=== PATIENT | female | born 2005 | race Caucasian/White ===

== ENCOUNTER 2023-05-06 11:40 | Outpatient (REF) | payer MEDICAID, SELFPAY ==
[2023-05-09 00:17] LABS: TS Negative Control Passed; TS Panel A 0; TS Panel B 0; TS Positive Control Passed; TSpotTB Negative (Negative)
== END 2023-05-06 11:41 | disposition home or self-care (01) ==
LOC: HO.HHCL 11:40
PROVIDERS: Visit Provider Family Medicine
DX: Z11.1 Encounter for screening for respiratory tuberculosis (principal)
CPT/HCPCS: 36415; 86481

== ENCOUNTER 2023-05-20 10:57 | Outpatient (REF) | payer MEDICAID, SELFPAY ==
[2023-05-20 13:29] LABS: Hematocrit 37.4 % (37.0-47.0); Hemoglobin 11.8 g/dl (12.0-16.0); Mean Corpuscular HGB Conc 31.6 g/dl (31.0-35.0); Mean Corpuscular Hemoglobin 25.5 pg (27.0-33.0); Mean Platelet Volume 10.8 fL (9.4-12.3); Platelet Count 216 X10*3/uL (160-400); Red Blood Count 4.62 X10*6/uL (4.20-5.50); Red Cell Distribution Width 13.6 % (11.0-16.0); White Blood Count 4.9 X10*3/uL (4.8-10.8)
[2023-05-20 13:58] LABS: Alanine Aminotransferase 16 U/L (0-31); Albumin Level 3.9 g/dL (3.5-5.0); Alkaline Phosphatase 60 U/L (39-117); Anion Gap 7 (12-20); Aspartate Amino Transferase 19 U/L (5-31); Bilirubin Total 0.5 mg/dL (0.0-1.0); Blood Urea Nitrogen 10 mg/dL (9-16); Calcium 9.2 mg/dL (8.4-10.2); Carbon Dioxide 29 mmol/L (22-29); Chloride 109 mmol/L (96-108); Cholesterol 136 mg/dL (<200); Estimated Glomerular Filt Rate > 60; Glucose Random 88 mg/dL (60-115); HDL Cholesterol 53 mg/dL (>40); Iron 53 mcg/dL (30-160); LDL Cholesterol Calculated 76 mg/dL (<100); Percent Iron Saturation 20 % (15-50); Potassium 4.2 mmol/L (3.3-5.1); Sodium 141 mmol/L (135-145); Total Iron Binding Capacity 267 mcg/dL (228-428); Total Protein 7.4 g/dL (6.5-8.0); Triglycerides 37 mg/dL (<150); Unsaturated Iron Binding 214 ug/dL
[2023-05-20 14:24] LABS: Ferritin 48 ng/mL (10-122)
[2023-05-21 08:59] LABS: HBS Num1 1.75 mIU/mL (0-7.99); HBc Num1 0.07 S/CO (0.00-0.79); HBsAGNum1 0.31 S/CO (0.00-0.99); HIV AB/AG Nonreactive (Nonreactive); HIV Num 1 0.07 S/CO (0.00-0.99); Hepatitis B Core Antibody Nonreactive (Nonreactive); Hepatitis B Surface Antigen Negative (Negative); ~HepC Num1 0.11 S/CO (0.00-0.79); ~Hepatitis B Surface Antibody NONREACTIVE (Nonreactive); ~Hepatitis C Antibody Nonreactive (Nonreactive)
== END 2023-05-20 10:58 | disposition home or self-care (01) ==
LOC: HO.HHCL 10:57
PROVIDERS: Visit Provider Family Medicine
DX: Z00.00 Encounter for general adult medical examination without abnormal findings (principal); Z11.4 Encounter for screening for human immunodeficiency virus [HIV]; D50.9 Iron deficiency anemia, unspecified; E66.09 Other obesity due to excess calories; R73.03 Prediabetes
CPT/HCPCS: 36415; 80053; 80061; 82728; 83540; 85027; 86704; 86706; 86803; 87340; 87389

== ENCOUNTER 2023-06-17 16:17 | Outpatient (REF) | payer MEDICAID, SELFPAY ==
--- NOTE | ~2023-06-17 | US_ITS ---
EXAMINATION: US PELVIS COMPLETE CLINICAL INFORMATION: Irregular menstrual bleeding COMPARISON: Pelvic ultrasound I-[id number] TECHNIQUE: Transabdominal imaging was performed. FINDINGS: The uterus is of normal size and echogenicity measuring 5.4 x 2.0 x 2.7 cm. The endometrium is not well-seen limiting evaluation due to transabdominal technique. Both ovaries are of normal size and echogenicity. The right measures 2.7 x 1.7 x 2.5 cm. The left measures 1.7 x 1.7 x 1.8 cm. There is no pelvic free fluid. US/US pelvic complete IMPRESSION: The endometrium is not well-seen limiting evaluation due to transabdominal technique. Otherwise unremarkable pelvic ultrasound.
== END 2023-06-17 16:18 | disposition home or self-care (01) ==
LOC: HO.US 16:17
PROVIDERS: PCP Family Medicine; Visit Provider Family Medicine
DX: N92.6 Irregular menstruation, unspecified (principal)
CPT/HCPCS: 76856

== ENCOUNTER 2023-11-06 12:32 | Outpatient (REF) | payer MEDICAID, SELFPAY ==
[2023-11-06 13:58] LABS: Estimated Average Glucose 100 mg/dL; Hemoglobin A1c % 5.1 % (<6.0)
[2023-11-06 14:38] LABS: Alanine Aminotransferase 15 U/L (0-31); Albumin Level 3.9 g/dL (3.5-5.0); Alkaline Phosphatase 58 U/L (39-117); Anion Gap 12 (12-20); Aspartate Amino Transferase 13 U/L (5-31); Bilirubin Total 0.4 mg/dL (0.0-1.0); Blood Urea Nitrogen 9 mg/dL (9-16); Calcium 9.6 mg/dL (8.4-10.2); Carbon Dioxide 28 mmol/L (22-29); Chloride 104 mmol/L (96-108); Estimated Glomerular Filt Rate > 60; Glucose Random 78 mg/dL (60-115); Potassium 3.7 mmol/L (3.3-5.1); Sodium 140 mmol/L (135-145); Total Protein 7.7 g/dL (6.5-8.0)
[2023-11-06 14:46] LABS: TSH reflex Free T4 1.56 uIU/mL (0.32-4.0)
== END 2023-11-06 12:33 | disposition home or self-care (01) ==
LOC: HO.HHCL 12:32
PROVIDERS: Visit Provider Nurse Practitioner
DX: E66.01 Morbid (severe) obesity due to excess calories (principal); Z68.41 Body mass index [BMI] 40.0-44.9, adult
CPT/HCPCS: 36415; 80053; 83036; 84443

== ENCOUNTER → 2024-08-16 07:54 | Outpatient (REF) | payer OTHER, SELFPAY ==
--- OUTSIDE RECORDS SUMMARY | 2024-08-16 07:57 | XMS_ITS | Encounter Summary ---
Author Organization [employer] Address [address] [place] [address] [address] [place] [address] Care Team Providers Care Radiator Fitter Name Role Phone Debo Charles Primary Care Provider [phone] Judith Calero NP Primary Care Provider [phone] Reason for Visit * Reason Onset Date Comments FYI 11/03/2022 Encounter Details Date Type Department Care Team (Late st Contact Info) Description 11/03/2022 Telephone [facility] [address] [place] [address] Debo Charles FNP [address] [place] [address] Dept [place] [address] I Social History Tobacco Use Types Packs/Day Years Used Date Smoking Tobacco: Never Smokeless Tobacco: Never Alcohol Use Standard Drinks/Week Comments Never 0 (1 standard drink = 0.6 oz pur e alcohol) Comments Unknown Sex and Gender Information Value Date Recorded Sex Assigned at Female 05/05/2022 10:17 AM EDT Legal Sex Female 10:17 AM EDT Gender Identity Female 05/05/2022 10:17 AM EDT Sexual Orientation Straight 05/05/2022 10 :17 AM EDT COVID-19 Exposure Response Date Recorded In the last 10 days, have yo u been in contact with someone who was confirmed or suspected to have Coronavirus/COVID-19? No / Unsure 10/23/2022 8:36 AM EDT documented as of this encounter Miscellaneous Notes * Telephone Encounter - Tanya Hollis - 11/03/2022 12:21 PM EDT Jaylan Garcia at [facility] calling to inform PCP, patient has an US pelvis and transvaginal today but did refuse the transvaginal part of it. Any further questions please call [phone]. documented in this encounter Plan of Treatment Not on file documented as of this encounter Visit Diagnoses Not on filedocumented in this encounter Care Teams Radiator Fitter Relationship Specialty Start Date End Date Debo Charles FNP PCP - General Family Medicine 01/23/22 04/13/23 Judith Calero NP [address] [place] [phone] PCP - General Family Medicine 04/14/23 documented as of this encounter
--- OUTSIDE RECORDS SUMMARY | 2024-08-16 07:57 | XMS_ITS | Clinical Summary ---
Author Organization [employer] Address [address] [place] [address] [address] [place] [address] Care Team Providers Care Theater Manager Name Role Phone Christisarah Judith CHEPE Primary Care Provider [phone] Allergies No known active allergies Medications cholecalciferol (Vitamin D-3) 50 MCG (1999 UT) tablet 1 (one) time each day. 2 Active ibuprofen 600 MG tablet TAKE 1 TABLET BY MOUTH EVERY 6 HOURS NEEDED FOR MODERATE PAIN SCALE 4-6. 2 Active ferrous gluconate (Fergon) 324 (38 Fe) MG tablet TAKE 1 TABLET BY MOUTH EVERY OTHER DAY 45 tablet 3 Active topiramate (Topamax) 25 MG tabletIndication s:Class 3 severe obesity due to excess calories without serious comorbidity with body mass index (BMI) of 40.0 to 44.9 in adult (CMS/FORMERLY [facility]) Take 1 tablet (25 mg) by mouth Once per day for 14 days. 14 tablet 4 Active phentermine 8 MG tablet Take half tablet by by mouth every day for 14 days. Then 1 tablet qd 28 tablet 4 Active Active Problems Problem Noted Date Diagnosed Date Encounter for preventive health examination 05/07 Assessment & Plan (07/08/2024 8:48 PM EST): Discussed with patient re increase fresh fruit and vegetable intake. Counseled re moderate exercise as tolerated, up to 20min/d Patient feels safe at home. PAP smear: Not due yet. BENIGNO huerta PCP in 2027 Eye exam: UTD, next one due on 2024 or earlier prn. Lipids/FBS: UTD, order TB test Vaccinations: Agreed to Influenza IZ and Hep B booster today. Advised to get most updated covid booster at earliest convenience, declined to have it done today. Dental visit: UTD, next one due on 08/2024 Patient is aware of condom samples availability at the health center and how to use it PRN intercourse to prevent both unwanted and STD. She doesn't want to start BC method at this time. Assessment & Plan (06/01/2023 1:24 PM EST): -flu vaccine received today -hepatitis and HIV screening completed -not due for pap/ cervical screening at this time Irregular menstrual bleeding 05/31/2023 Assessment & Plan (06/01/2023 1:23 PM EST): -irregular menses continues -unclear if TVUS was complete unable to see if the system -continue ibuprofen for menstrual cramps Iron deficiency anemia 10/24/2022 Assessment & Plan (05/31/2023 8:11 AM EST): -continue supplementation as ordered -increase consumption of iron rich foods such as kidd, dark green leafy vegetables, fortified breakfast cereals -will evaluate labs Episodic tension-type headache 06/09/2022 Prediabetes 06/09/2022 Overview (05/18/2023): Lab Results Component Value Date HGBA1C 4.9 10/23/2022 HGBA1C 4.9 02/13/2022 HGBA1C 4.8 10/25/2021 HGBA1C 5.1 10/15/2020 Acne vulgaris 03/22/2018 Eczema 08/12/2017 Decreased visual acuity 08/12/2017 Behavior problem in child 08/12/2017 Speech delay 08/12/2017 Obesity 12/17/2011 Assessment & Plan (06/22/2024 4:24 PM EST): -trialed phentermine/topamax with failed attempt as her insurance would not cover phentermine -discussed other pharmacological options for weight loss. Patient would rather undergo bariatric surgery -Discussed calorie deficit, recommended reduction of 20-30% of maintenance calories. Recommended to decrease soda and sugary beverage consumption. Recommended at least 20 g per meal of protein. -manager [facility] referral offered, however patient declined stating she was engaged with manager heart years ago and is familiar with the teachings -reviewed recommended exercise requirement of at least 150 min/week of moderate intensity exercise -referral for bariatric surgery placed per patient request Assessment & Plan (02/16/2024 10:24 AM EDT): -I will call [facility] to investigate the delay in patient's medication -encouraged to continue walking, but progressively increase speed with goal of being able to jog at least 15 min and speed walk 15 mins. -continue dietary changes and stress reduction measure -follow-up 4 weeks in person Assessment & Plan (02/01/2024 11:29 AM EDT): -trial phentermine and topamax. Prescription sent to pharmacy. Medication side effects reviewed. -encouraged 60 min minimum of moderate intensity physical activity -stress management encouraged -follow-up 2 weeks via telephone to assess med effectiveness Assessment & Plan (09/10/2023 11:22 AM EST): -labs (11/20/2022) ruled out hyper/hypo thyroid and hyperprolactinemia as causes of obesity. Slightly increased fasting insulin and testosterone levels. Inconclusive US ordered by previous provider to rule out PCOS as patient was unable to complete transvaginal US for visualization of ovaries....complete visualization limited with pelvic US -patient is open to explore all avenues to assist with weight loss -lost 49 lbs between 05/27/23 and 09/09/23 -increase exercise intensity and frequency encouraged -declined nutrition referral as she has done this in the past -dietary teaching completed: decrease carb and fat consumption and increase protein amounts in diet by eating more meats, fish, beans. -advised to eat small portions of carb and larger portion of vegetables and meat -encourage to explore variety of vegetables and eat the rainbow -will trial phentermine if lifestyle changes alone are not yielding sufficient results -follow-up 1 month for weight check Assessment & Plan (05/31/2023 8:08 AM EST): -BMI 42.21 -Healthy diet and exercise teaching completed: Eat a variety of fruit and vegetables, whole grains such as whole-wheat flour, bulgur (cracked wheat), oatmeal, and brown rice. Intake protein from beans, nuts, fish, and lean meats. Eat low-fat or fat- free dairy products. Limit highly processed foods such as hot dogs, sandwich meat, etc. Engage in minimum of 150 min of moderate intensity exercise weekly -will evaluate lipid levels Immunizations Name Administration Dates Next Due DTaP, 5 pertussis antigens 04/10/2008,,05/03/2004,02/19,2003 HPV 9-Valent 03/22/2018,11/14/2016 Hep A, ped/adol, 2 dose 02/05/2011,08/07/2009 Hep B, Adolescent or Pediatric 05/03/2014,2003,2003 Hep B, adult 05/13/2024 Hib (PRP-T) 11/18/2004, 4,02/20/2004,11/06 IPV 04/10/2008, 4,02/20/2004,11/06 Influenza injectable quadriv alent preservative free 05/20/2023,08/29/2020,03/28/2019,03/22 Influenza, injectable, quadr ivalent, preservative free, pediatric 04/07/2012,08/07/2009,04/14/2007,04/10,06/06/2004,05/03/2004 Influenza, seasonal, injecta ble, preservative free 05/13/2024 MMR 04/10/2008,11/18/2004 Meningococcal MCV4P ACYW-135 08/29/2020,11/15/19 17 Pneumococcal Conjugate PCV 13 11/18/2004 ,05/03/2004,02/20/2004,11/06 Tdap 11/14/2016 Varicella 04/10/2008,11/18/2004 Family History Medical History Relation Name Comments Diabetes Paternal Grandmother Relation Name Status Comments Paternal Grandmother Social History Tobacco Use Types Packs/Day Years Used Date Smoking Tobacco: Never Smokeless Tobacco: Never Tobacco Cessation:Counseling Given: Not Answered Alcohol Use Standard Drinks/Week Comments Never 0 (1 standard drink = 0.6 oz pur e alcohol) Alcohol Answer Date Recorded Frequency of Alcohol Consumption Not on file 03/28/2024 Average Number of Drinks Not on file 024 Frequency of Binge Drinking Not on file 03/07 Score 0 03/28/2024 Depression Answer Date Recorded Patient Health Questionnaire-9 Score 6 03/28/2024 Patient Health Questionnaire-9 Score 6 03/28/2024 Last PHQ-9: Questionnaire Data Not on file 0 03/28/2024 Housing Stability Answer Date Recorded What is your housing situation today? I have aldo yan 09/09/[address] you li ve. Do you have problems with any of the following? None of the above 09/09/2023 Food Insecurity Answer Date Recorded Within the past 12 months, y ou worried that your food would run out before you got money to buy more: Never True 09/09/2023 Within the past 12 months,th e food you bought just didn't last and you didn't have enough money to get more: Never True 12/2023 Transportation Answer Date Recorded In the past 12 months, has l ack of transportation kept you from medical appts, meetings, work or from getting things needed for daily living? No 09/09/2023 Utilities Answer Date Recorded In the past 12 months, has t he electric, gas, oil or water company threatened to shut off services in your home? No 09/09/2023 Depression Answer Date Recorded Patient Health Questionnaire-2 Score 1 03/28/2024 Education Answer Date Recorded What is the highest level of school you have completed or the highest degree you have received? 12th grade 11/20/2022 Comments No Sex and Gender Information Value Date Recorded Sex Assigned at Female 05/05/2022 10:17 AM EDT Legal Sex Female 10:17 AM EDT Gender Identity Female 05/05/2022 10:17 AM EDT Sexual Orientation Straight 05/05/2022 10 :17 AM EDT Last Filed Vital Signs Vital Sign Reading Time Taken Comments Blood Pressure 128/76 05/13/2024 10:42 AM EST Pulse 85 05/13/2024 10:42 AM EST Temperature 36.3 ??C (97.3 ??F) 05/13/2024 10:[address] Respiratory Rate 16 05/13/2024 10:42 AM EST Oxygen Saturation 98% 05/13/2024 10:42 AM EST Inhaled Oxygen Concentration - - Weight 140 kg (309 lb 2 oz) 05/13/2024 10:42 AM EST Height 177.8 cm (5' 10 ) 05/13/2024 10:42 AM EST Body Mass Index 44.35 05/13/2024 10:42 AM EST Plan of Treatment Health Maintenance Due Date Last Done Comments Chlamydia and Gonorrhea Screening 2003 Family Planning (PISQ) 2018 COVID-19 Vaccine ( season) 2024 12/23/2022, 11/28/2020, 11/07/2020 SDOH Screening 09/08/2024 09/09/2023 Diabetes: Hemoglobin A1C 11/05/2024 024, 10/23/2022, 02/13/2022, Additional history exists Alcohol/Substance Use Screening 03/28/2025 03/28/2024 Depression Screening 03/28/2025 03/28/2024, 03/28/20 24 Tobacco Screening 05/13/2025 05/13/2024 DTaP/Tdap/Td Vaccines (7 - Td or Tdap) 11/14/2026 11/14/2016, 04/10/2008, 11/18/2004, Additional history exists Lipid Panel 05/20/2028 05/20/2023, 10/05, 02/13/2022, Additional history exists Zoster Vaccines (1 of 2) 2053 RSV Patients and Patients Aged 60 years or older (1 - 1-dose 75+ series) 2078 HIB Vaccines Completed 11/18/2004, 04/06, 02/20/2004, Additional history exists Pneumococcal Vaccine: Pediatrics (0 to 5 Years) and At-Risk Patients (6 to 49) Years) Completed 11/18/2004, 05/03/2004, 02/20/2004, Additional history exists IPV Vaccines Completed 04/10/2008, 04/06, 02/20/2004, Additional history exists Hepatitis A Vaccines Completed 02/05/2011, 08/07/19 10 HPV Vaccines Completed 03/22/2018, 11/14/2016 Meningococcal Vaccine Completed 08/29/2020, 017 HIV Screening Completed 05/20/2023 Hepatitis C Screening Completed 05/20/2023 Hepatitis B Vaccines Completed 05/13/2024, 05/03/2014, 2003, Additional history exists Influenza Vaccine Completed 05/13/2024, , 08/29/2020, Additional history exists RSV under 20 months Aged Out No longe r eligible based on patient's age to complete this topic Rotavirus Vaccines Aged Out No longer eligible based on patient's age to complete this topic Procedures Procedure Name Priority Date/Time Associated Diagnosis Comments HEMOGLOBIN A1C Routine 11/06/2023 12:36 PM EDT Class 3 severe obesity due to excess calories without serious comorbidity with body mass index (BMI) of 40.0 to 44.9 in adult (CMS/FORMERLY [facility]) HEPATITIS C AB W/REFL TO HCV RNA, QN, PCR Routine 05/20/2023 11:00 AM EST Routine adult health maintenance HIV 1/2 ANTIGEN/ANTIBODY, FOURTH GENERATION W/RFL Routine 05/20/2023 11:00 AM EST Routine adult health maintenance LIPID PANEL, STANDARD Routine 05/20/2023 11:00 AM EST Class 2 obesity due to excess calories without serious comorbidity with body mass index (BMI) of 39.0 to 39.9 in adult from Last 3 Months or Most Recently Relevant to Health Maintenance Results * Hemoglobin A1c (11/06/2023 12:36 PM EDT) Hemoglobin A1c 5.1 <6.0 % [facility] Comment:Hemoglobin A1C Refer ence Range Adults: 4.8 - 6.0 % Non diabetic: < 6.0 % Goal: < 7.0 %Additional Action Suggested: > 8.0 %Note: Hemoglobin A1c results are invalid for patients with abnormal amounts of HbF. Blood transfusions may impact the HbA1c concentration in the patient sample. Estimated Average Glucose 100 mg/dL [facility] Comment:eAG = Estimated ave rage glucose which is %A1C expressed asaverage glucose, using the formula of the [id number]-[id number] Glucose study (ADAG), Diabetes Care, Vol.31,#8,2007 Blood Venous blood specimen / Unknown 11/06/2023 12:36 PM EDT 11/06/2023 1:15 PM EDT Judith Calero MANAGER [employer] LAB BLOOD ORDERABLES Final Resu lt Performing Organization Address [facility] Co de Phone Number [facility] [address] [place] [phone] * Hepatitis C Antibody with Reflex to HCV, RNA, Quantitative, Real-Time PCR (05/20/2023 11:00 AM EST) Pathologist [facility] Hepatitis C Antibody Nonreactive Nonreactive [facility] Comment:Antibodies to HCV no t detected; does not exclude early acuteHCV infection. Blood Venous blood specimen / Unknown 05/20/2023 11:00 AM EST 05/20/2023 1:16 PM EST Pamela Hill MD LAB BLOOD ORDERABLES Final Re sult Performing Organization Address [facility] de Phone Number [facility] [address] [place] [phone] * HIV-1/2 Antigen and Antibodies, Fourth Generation, with Reflexes (05/20/2023 11:00 AM EST) HIV AB/AG Nonreactive Nonreactive [facility] Comment:HIV-1 p24 Ag and/or HIV-1/HIV-2 Ab not detected.A test result that is nonreactive does not exclude thepossibility of exposure to or infection with HIV-1 and/orHIV-2. Nonreactive results in this assay for individualswith prior exposure to HIV-1 and/or HIV-2 may be due toantigen and antibody levels that are below the limit ofdetection of this assay.The [email or web address] HIV Ag/Ab Combo assay result andsupplemental assay results should be interpreted inconjunction with the patient's clinical presentation,history and other laboratory results. If the results areinconsistent with clinical evidence, additional testing issuggested to confirm the result. Blood Venous blood specimen / Unknown 05/20/2023 11:00 AM EST 05/20/2023 1:16 PM EST Pamela Hill MD LAB BLOOD ORDERABLES Final Re sult Performing Organization Address [facility] Co de Phone Number [facility] [address] [place] [phone] * Lipid Panel, Standard (05/20/2023 11:00 AM EST) Triglycerides 37 <150 mg/dL [facility] Comment:Desirable Triglyceri de: less than 90 mg/dLBorderline High Triglyceride: 90-129 mg/dLHigh Triglyceride: greater than 130 mg/dL Cholesterol 136 <200 mg/dL [facility] Comment:Desirable Cholestero l: less than 170 mg/dLBorderline High Cholesterol: 170-199 mg/dLHigh Cholesterol: greater than 200 mg/dL LDL Cholesterol Calculated 76 <100 mg/dL [facility] Comment:Desirable LDL: less than 110 mg/dLBorderline LDL: 110-129 mg/dLHigh LDL: greater than or equal to 130 mg/dL HDL Cholesterol 53 >40 mg/dL [facility] Comment:Desirable HDL: great er than 45 mg/dLBorderline HDL: 40-45 mg/dLLow HDL: less than 40 mg/dL Note: This HDL assay may give artificially low results in patients with liver disease. Blood Venous blood specimen / Unknown 05/20/2023 11:00 AM EST 05/20/2023 1:16 PM EST Pamela Hill MD LAB BLOOD ORDERABLES Final Re sult Performing Organization Address [facility] Co de Phone Number [facility] [address] [place] [phone] from Last 3 Months or Most Recently Relevant to Health Maintenance [facility] Care Teams Theater Manager Relationship Specialty Start Date End Date Judith Calero NP [address] [place] [phone] PCP - General Family Medicine 04/14/23
--- OUTSIDE RECORDS SUMMARY | 2024-08-16 07:57 | XMS_ITS | Clinical Summary ---
Author Organization [facility] Address [address] [place] [address] Care Team Providers Care Sagger Maker Name Role Phone Unavailable Primary Care Provider Unavailabl e Source Comments PLEASE NOTE, if this patient is a minor, it may be UNLAWFUL to discuss sensitive information that is contained in these records (such as FAMILY PLANNING, MENTAL HEALTH or SUBSTANCE ABUSE) with the minor patient's parent or other person without the patient's specific authorization.[facility] Allergies No known active allergies Medications erythromycin (ROMYCIN) 5 mg/gram (0.5 %) ophthalmic ointmentIndications :Bacterial conjunctivitis of left eye Place 0.5 Inches into the left eye nightly at bedtime 3.5 g 8 Active Active Problems Problem Noted Date Diagnosed Date Speech delay 08/12/2017 Eczema 08/12/2017 Decreased visual acuity 08/12/2017 Childhood obesity 08/12/2017 Behavior problem in child 08/12/2017 Immunizations Name Administration Dates Next Due DTAP (DAPTACEL),5 PERTUSSIS ANTIGENS 12/2007,11/18/2004,05/03/2004,02/19,2003 HEP B, PED/ADOL 05/03/2014,2003,2003 HPV 9 (Gardasil) 11/14/2016 Hep A, Ped/adol, 2 Dose 02/05/2011,08/07/2009 Hib (PRP-T) 11/18/2004, 4,02/20/2004,11/06 INFLUENZA, SEASONAL, INJECTABLE 08/07/19 10,04/14/2007,04/10/2005,06/06,05/03/2004 IPV 04/10/2008, 4,02/20/2004,11/06 Influenza Virus Vaccine (FLU MIST), Live Intranasal 04/07/2012 MENINGOCOCCAL MCV4P (MENACTRA) 11/14/2016 MMR (MMR II/Priorix) 04/10/2008,11/18/2004 PNEUMOCOCCAL CONJUGATE PCV 13 11/18/2004 ,05/03/2004,02/20/2004,11/06 TDAP 11/14/2016 Varicella, Live Vaccine 04/10/2008,11/18/2004 Social History Tobacco Use Types Packs/Day Years Used Date Smoking Tobacco: Never Smokeless Tobacco: Never Tobacco Cessation:Counseling Given: Yes Alcohol Use Standard Drinks/Week Comments No 0 (1 standard drink = 0.6 oz pur e alcohol) Social Connections Answer Date Recorded Social Connections and Isolation 0 02/27/2019 Financial Resource Strain Answer Date R ecorded Financial Resource Strain 0 2018 Stress Answer Date Recorded Stress 0 02/27/2019 Physical Activity Answer Date Recorded Physical Activity 0 02/27/2019 Food Insecurity Answer Date Recorded Food 0 02/27/2019 Transportation Needs Answer Date Record ed Transportation 0 02/27/2019 Housing Stability Answer Date Recorded Housing 0 02/27/2019 Safety and Environment Answer Date Kirk rded Safety 0 02/27/2019 Utilities Answer Date Recorded Utilities 0 02/27/2019 Employment Answer Date Recorded Employment 0 02/27/2019 Comments No Sex and Gender Information Value Date Recorded Sex Assigned at Female 05/14/2017 6:58 AM PST Legal Sex Female 12:15 PM PDT Gender Identity Female 05/14/2017 6:58 AM PST Sexual Orientation Not on file Last Filed Vital Signs Vital Sign Reading Time Taken Comments Blood Pressure 118/68 07/23/2017 2:35 PM EST Pulse 100 07/23/2017 2:35 PM EST Temperature 36.6 ??C (97.8 ??F) 07/23/2017 2:35 PM ES T Respiratory Rate 20 07/23/2017 2:35 PM EST Oxygen Saturation - - Inhaled Oxygen Concentration - - Weight 91.6 kg (202 lb) 07/23/2017 2:35 PM EST Height 171 cm (5' 7.32 ) 07/23/2017 2:35 PM EST Body Mass Index 31.33 07/23/2017 2:35 PM EST Plan of Treatment Not on file Insurance [facility] [employer] Member Subscriber Plan / Payer (Ef fective 2017-Present) Name:Dave Meneses Relation to Subscriber:Self Name:Dave Meneses Payer ID:[id number] Group ID:Not on file Type:Medicaid Address: [facility] [address] [place] [address]
--- OUTSIDE RECORDS SUMMARY | 2024-08-16 07:57 | XMS_ITS | Clinical Summary ---
Author Organization [facility] it Address [address] [place] [address] Care Team Providers Care Termite Inspector Name Role Phone Unavailable Primary Care Provider Unavailabl e Social History Tobacco Use Types Packs/Day Years Used Date Smoking Tobacco: Never Assessed Comments Unknown Sex and Gender Information Value Date Recorded Sex Assigned at Not on file Legal Sex Female 2:12 AM EST Gender Identity Not on file Sexual Orientation Not on file Plan of Treatment Health Maintenance Due Date Last Done Comments Gonorrhea/Chlamydia Screening 2003 DTaP,Tdap,and Td Vaccines (6 - Tdap) 2014 04/10/2008, 11/18/2004, 05/03/2004, Additional history exists HPV Vaccines (1 - 3-dose series) 2018 Annual Well Child Visit (3-21 years old) 06/08/2022 Depression Screening 06/08/2022 HIV Screening 06/08/2022 Hepatitis C Screening 06/08/2022 Social Influencers of Health Screening 06/08/2022 COVID-19 Vaccine ( season) 2024 Influenza Vaccine (#1) 2024 08/29/2020, 2018 HIB Vaccines Completed 11/18/2004, 04/06, 02/20/2004, Additional history exists Pneumococcal Vaccine: Pediatrics (0 to 5 Years) and At-Risk Patients (6 to 64 Years) Completed 11/18/2004, 05/03/2004, 02/20/2004, Additional history exists IPV Vaccines Completed 04/10/2008, 04/06, 02/20/2004, Additional history exists MMR Vaccines Completed 04/10/2008, 11/18/2004 Varicella Vaccines Completed 04/10/2008, 11/18/2004 Hepatitis A Vaccines Completed 02/05/2011, 08/07/19 Hepatitis B Vaccines Completed 05/03/2014, 2003, 2003 Meningococcal ACWY Vaccine Completed 08/29/2020 RSV Immunization Patients Under 20 months Aged Out No longer eligible based on patient's age to complete this topic
--- OUTSIDE RECORDS SUMMARY | 2024-08-16 07:57 | XMS_ITS | Encounter Summary ---
Author Organization [employer] Address [address] [facility] [address] [place] [address] Care Team Providers Care Oil Distributor Name Role Phone Judith Calero NP Primary Care Provider [phone] Reason for Visit * Reason Onset Date Comments Medication Question 11/09/2023 Encounter Details Date Type Department Care Team ([facility] st Contact Info) Description 11/09/2023 Telephone [facility] MEDICINE [address] [place], [place] [phone] Judith Calero NP [address] [place] [address] Medication Question Social History Tobacco Use Types Packs/Day Years Used Date Smoking Tobacco: Never Smokeless Tobacco: Never Alcohol Use Standard Drinks/Week Comments Never 0 (1 standard drink = 0.6 oz pur e alcohol) Depression Answer Date Recorded Patient Health Questionnaire-9 Score 0 05/20/2023 Patient Health Questionnaire-9 Score 0 05/20/2023 Last PHQ-9: Questionnaire Data Not on file 1 07/20/2022 Housing Stability Answer Date Recorded What is [...] Answer Date Recorded Patient Health Questionnaire-2 Score 0 05/20/2023 Education Answer Date Recorded What is the highest level of school you have completed or the highest degree you have received? 12th grade 11/20/2022 Comments Unknown Sex and Gender Information Value Date Recorded Sex Assigned at Female 05/05/2022 10:17 AM EDT Legal Sex Female 10:17 AM EDT Gender Identity Female 05/05/2022 10:17 AM EDT Sexual Orientation Straight 05/05/2022 10 :17 AM EDT documented as of this encounter Miscellaneous Notes * Telephone Encounter - Jerrica Levine RN - 11/10/2023 4:03 PM EDT T/C to pt. For below message, No answer. LVM to call back on [phone]. * Telephone Encounter - Jerrica Levine RN - 11/10/2023 1:13 PM EDT Please review and advise for below request. * Telephone Encounter - Roman Coronado - 11/09/2023 1:29 PM EDT Tc from pt requesting call back regarding medication. Pt stated she was prescribed 2 medications during last office visit with pcp but only received on which was phentermine 37.5 MG capsule. Pt unsure on name of the 2nd medication but upon further review on last office notes, commercial loan underwriter assumes topiramate (Topamax) 25 MG tablet is the medication pt was referring to. Pt wants to know if there was a mistake or if she should only be taking the phentermine 37.5 MG capsule. Please contact pt at [phone]. documented in this encounter Plan of Treatment Not on file documented as of this encounter Visit Diagnoses Not on filedocumented in this encounter Additional Health Concerns Assessment Noted Time PHQ-9 Depression Total Score: 0 05/20/20 9:50 AM EST documented as of this encounter Care Teams Oil Distributor Relationship Specialty Start Date End Date Judith Calero NP [address] [place] [id number] PCP - General Family Medicine 04/14/23 documented as of this encounter
--- OUTSIDE RECORDS SUMMARY | 2024-08-16 07:57 | XMS_ITS | Encounter Summary ---
Author Organization [employer] Address [address] [facility] [address] [place] [address] Care Team Providers Care Sew Out Operator Name Role Phone Judith Calero NP Primary Care Provider [phone] Reason for Visit * Reason Onset Date Comments FYI 12/01/2023 Encounter Details Date Type Department Care Team ([facility] st Contact Info) Description 12/01/2023 Telephone [facility] MEDICINE [address] [place] [address] Judith Calero NP [address] [place] [address] FYI Social History Tobacco Use Types Packs/Day Years [...] Telephone Encounter - Jerrica Levine RN - 12/01/2023 4:20 PM EDT FYI Please review and advise if needed. * Telephone Encounter - [place] Elmore - 12/01/2023 3:15 PM EDT Tc from pt calling to advise provider due to side effects, she has stopped taking phentermine 37.5 MG capsule and topiramate (Topamax) 25 MG tablet. Pt states she is experiencing nausea, loss of appetite, headache, and dizziness. documented in this encounter Plan of Treatment Not on file documented as of this encounter Visit Diagnoses Not on filedocumented in this encounter Additional Health Concerns Assessment Noted Time PHQ-9 Depression Total Score: 0 05/20/20 9:50 AM EST documented as of this encounter Care Teams Sew Out Operator Relationship Specialty Start Date End Date Judith Calero NP [address] [place] [id number] PCP - General Family Medicine 04/14/23 documented as of this encounter
--- OUTSIDE RECORDS SUMMARY | 2024-08-16 07:57 | XMS_ITS | Encounter Summary ---
Author Organization [employer] [facility] Address [address] [place] [address] [place] [address] Care Team Providers Care Roll Out Manager Name Role Phone Debo Charles Primary Care Provider [phone] Judith Calero NP Primary Care Provider [phone] Encounter Details Date Type Department Care Team ([facility] st Contact Info) Description 06/09/2022 Telephone [facility] MEDICINE [address] [place] [address] Debo Charles FNP [address] [place] [address] [place] [address] Social History Tobacco Use Types Packs/Day Years Used Date Smoking Tobacco: Never Assessed Comments Unknown Sex and Gender Information Value Date Recorded Sex Assigned at Female 05/05/2022 10:17 AM EDT Legal Sex Female 10:17 AM EDT Gender Identity Female 05/05/2022 10:17 AM EDT Sexual Orientation Straight 05/05/2022 10 :17 AM EDT documented as of this encounter Plan of Treatment Not on file documented as of this encounter Visit Diagnoses Not on filedocumented in this encounter Care Teams Roll Out Manager Relationship Specialty Start Date End Date Debo Charles FNP PCP - General Family Medicine 01/23/22 04/13/23 Judith Calero NP [address] [place] [address] PCP - General Family Medicine 04/14/23 documented as of this encounter
== END ==
LOC: HO.SL 07:54
PROVIDERS: PCP Nurse Practitioner; Visit Provider Nurse Practitioner
DX: Z13.89 Encounter for screening for other disorder (principal)